=== PATIENT | female | born 1990 | race African-American/Black ===

== ENCOUNTER 2021-02-07 07:19 | Emergency (ER) | payer OTHER ==
[~2021-02-07] VITALS: Ht 162.6 cm; Wt 90.0 kg
[2021-02-07] MEDS ORDERED: ALBUTEROL (0.083%) 2.5MG/3ML NEB HHN STA (07:55)
[2021-02-07] MEDS ORDERED: ALBU6.7H9 INH (09:22)
[2021-02-07 09:43] VITALS: BP 112/74
== END 2021-02-07 09:40 | disposition home or self-care (01) ==
LOC: ER 07:19
DX: J45.909 Unspecified asthma, uncomplicated (principal); T40.7X1A Poisoning by cannabis (derivatives), accidental (unintentional), initial encounter; R07.89 Other chest pain; F12.188 Cannabis abuse with other cannabis-induced disorder; Y92.89 Other specified places as the place of occurrence of the external cause
CPT/HCPCS: 71045; 81025; 93005; 94640; 99283